=== PATIENT | male | born 1985 | race Caucasian/White ===

== ENCOUNTER 2017-09-30 16:24 | Emergency (ER) | payer SELFPAY ==
[~2017-09-30] VITALS: Ht 185.4 cm; Wt 63.4 kg
[~2017-09-30 16:24] MED LIST: ZOFRAN ODT4 MG PO
[2017-09-30 16:46] LABS: ADD MIUA? YES; BILIRUBIN NEGATIVE; BLOOD SMALL; COLOR YELLOW ((YELLOW)); GLUCOSE (STRIP) NEGATIVE; KETONES 5; LEUKOCYTES NEGATIVE; NITRITE NEGATIVE; PROTEIN (STRIP) NEGATIVE; SPECIFIC GRAVITY 1.009 (1.000-1.030); UROBILINOGEN 0.2 MG/DL (0.2-1.0)
[2017-09-30 16:53] LABS: BACTERIA NONE SEEN /HPF; EPITHELIAL CELLS NONE SEEN /HPF; MUCUS 1+ /LPF; RED BLOOD CELLS 0-5 /HPF (0-5); UCUL ADDED? NO; WHITE BLOOD CELLS 0-5 /HPF (0-5)
[2017-09-30 17:56] LABS: HEMATOCRIT 44.6 % (38.0-50.0); MCH 27.8 PG (29.0-34.0); MCHC 33.9 G/DL (30.0-36.0); MCV 82.1 FL (86-99); MEAN PLAT.VOLUME 10.5 uM^3 (9.0-12.4); PLATELET COUNT 265 K/uL (156-360); RBC DIS.WIDTH-CV 12.7 % (11.8-14.6); RBC DIS.WIDTH-SD 38.1 % (39-53); RED BLOOD COUNT 5.43 M/uL (4.00-5.50); WHITE BLOOD COUNT 8.1 K/uL (4.1-10.2)
[2017-09-30 18:06] LABS: CHLORIDE 105 mEq/L (99-109); POTASSIUM 3.9 mEq/L (3.7-5.4); SODIUM 138 mEq/L (136-147)
[2017-09-30 18:08] LABS: GLUCOSE 105 mg/dL (70-99)
[2017-09-30 18:09] LABS: ANION GAP 10 MEQ/L (2-14)
[2017-09-30 18:10] LABS: TOTAL BILIRUBIN 0.7 mg/dL (0.0-1.0)
[2017-09-30 18:12] LABS: ALKALINE PHOSPHATASE 67 IU/L (3-129); GFR ESTIMATE (CALCULATED) > 59 mL/min/
[2017-09-30 18:13] LABS: UREA NITROGEN (BUN) 6 mg/dL (9-23)
[2017-09-30 18:15] LABS: LIPASE 23 U/L (1.0-51.0)
[2017-09-30] MEDS ORDERED: ULTRAM50 MG PO (20:54)
[2017-09-30 21:13] VITALS: BP 122/84
== END 2017-09-30 21:14 | disposition home or self-care (01) ==
LOC: EME 16:24
DX: R10.33 Periumbilical pain (principal); R19.7 Diarrhea, unspecified; G89.29 Other chronic pain
CPT/HCPCS: 74177; 80053; 81003; 83690; 85027; 99281; 99285; J3010; J7030